=== PATIENT | male | born 1955 | race Caucasian/White ===

== ENCOUNTER 2017-01-27 06:44 | Day surgery (SDC) | payer MEDICAID ==
[2017-01-23 12:23] LABS: Urine Bilirubin Negative (Negative); Urine Blood Negative /uL (Negative); Urine Color Yellow (Yellow); Urine Glucose Normal (Normal); Urine Ketone Negative (Negative); Urine Nitrite Negative (Negative); Urine RBC <1 /hpf (0 - 3)
[2017-01-23 12:31] LABS: INR 1.01 (0.9-1.15); Partial Thromboplastin Time 28.4 sec (22.64-33.71); Prothrombin Time 10.4 sec (9.37-12.3)
[2017-01-23 12:34] LABS: Basophils # (auto) 0 uL; Basophils % (auto) 0.6 % (0.0-2.0); Eosinophils # (auto) 0.2 uL; Eosinophils % (auto) 4.9 % (0.0-7.0); Hematocrit 39.3 % (41.0-53.0); Hemoglobin 13.4 g/dL (13.5-17.5); Lymphocytes # (auto) 1.3 uL; Mean Corpuscular Hgb Conc. 34.1 g/dL (32.0-36.0); Mean Corpuscular Volume 82.2 fL (80.0-100.0); Mean Platelet Volume 8.1 fL (7.4-10.4); Monocytes # (auto) 0.5 uL; Monocytes % (auto) 9.8 % (0.0-12.0); Neutrophils # (auto) 2.7 uL; Neutrophils % (auto) 56.7 % (37.0-80.0); Platelet Count (auto) 263 10^3/uL (140-450); Red Cell Distribution Width 13.4 % (11.6-16.0); White Blood Cell 4.7 10^3/uL (4.4-10.8)
[2017-01-23 12:43] LABS: BUN/Creatinine Ratio 32.1; Bilirubin, Total 0.5 mg/dL (0.2-1.0); Potassium 3.9 mmol/L (3.5-5.1); Total Protein 7.1 g/dL (6.4-8.2)
[~2017-01-27] VITALS: Ht 172.7 cm; Wt 93.9 kg
[~2017-01-27 06:44] MED LIST: IBUP200C3 PO
[2017-01-27] MEDS ORDERED: ceFAZolin 1GM/50ML D5W 50 ML IV ONE (07:22)
[2017-01-27] MEDS ORDERED: BUPIVACAINE 0.25% INJ 50ML VIAL ONE (10:32)
[2017-01-27] MEDS ORDERED: PROMETHAZINE HCL 25 MG/ML 1ML IM ONE (12:15)
[2017-01-27] MEDS ORDERED: PROPOFOL 10 MG/ML 20 ML IV ONE (12:17)
[2017-01-27] MEDS ORDERED: fentaNYL CITRATE 100 MCG/2 ML VL ONE (12:17)
[2017-01-27] MEDS ORDERED: HYDROmorphone HCL 2 MG/ML VL ONE (12:17)
[2017-01-27] MEDS ORDERED: fentaNYL CITRATE 5 ML ONE (12:17)
[2017-01-27] MEDS ORDERED: SODIUM CHLORIDE LOCK 30 ML ONE (12:17)
[2017-01-27] MEDS ORDERED: NEOSTIGMINE 1 MG/ML INJ (10mg/10ML VIAL) ONE (12:17)
[2017-01-27] MEDS ORDERED: MIDAZOLAM HCL 1MG/1ML-2 ML VIAL ONE (12:17)
[2017-01-27] MEDS ORDERED: GLYCOPYRROLATE 0.2 MG/ML 1ML VIAL ONE (12:17)
[2017-01-27] MEDS ORDERED: METOCLOPRAMIDE HCL 5MG/ml INJ 2ml VIAL ONE (12:17)
[2017-01-27] MEDS ORDERED: ceFAZolin 1GM VL ONE (12:35)
[2017-01-27] MEDS: HYDROmorphone HCL 2 MG/ML VL IV PRN ×2 (14:25→14:35)
[2017-01-27 15:14] VITALS: BP 124/68
== END 2017-01-27 15:34 | disposition home or self-care (01) ==
LOC: SUR 06:44
PROVIDERS: ATTEND Surgery
DX: K40.91 Unilateral inguinal hernia, without obstruction or gangrene, recurrent (principal); K66.0 Peritoneal adhesions (postprocedural) (postinfection); Z87.891 Personal history of nicotine dependence
CPT/HCPCS: 49651; J1170; J2765; J3010; J7030; S2900; 36415; 80053; 81001; 85025; 85610; 85730; 86850; 86900; 86901; C1781; J0690; J2250; J2704; J3490

== ENCOUNTER 2021-07-16 10:30 | Emergency (ER) | payer OTHER, MEDICAID ==
[~2021-07-16] VITALS: Ht 172.7 cm; Wt 102.1 kg
[2021-07-16 10:31] VITALS: BP 146/77
[2021-07-16 11:36] LABS: Basophils # (auto) 0 10 ^3/uL (0-0.2); Basophils % (auto) 0.8 % (0.0-2.0); Eosinophils # (auto) 0.5 10 ^3/uL (0-0.8); Eosinophils % (auto) 10.6 % (0.0-7.0); Hematocrit 40.3 % (41.0-53.0); Hemoglobin 13.6 g/dL (13.5-17.5); Lymphocytes # (auto) 1.3 10 ^3/uL (0.4-5.4); Lymphocytes % (auto) 24.9 % (10.0-50.0); Mean Corpuscular Hemoglobin 27.8 pg (28.0-32.0); Mean Corpuscular Hgb Conc. 33.8 g/dL (32.0-36.0); Monocytes # (auto) 0.5 10 ^3/uL (0-1.3); Neutrophils # (auto) 2.7 10 ^3/uL (1.6-8.6); Neutrophils % (auto) 53.7 % (37.0-80.0); Nucleated Red Blood Cells % 0.1 %; Red Blood Cells 4.92 10^6/uL (4.5-5.90); Red Cell Distribution Width 14.7 % (11.8-14.3); White Blood Cell 5.1 10^3/uL (4.4-10.8)
[2021-07-16 11:57] LABS: Chloride 110 mmol/L (98-107); Potassium 3.8 mmol/L (3.5-5.1); Sodium 139 mmol/L (136-145)
[2021-07-16 12:13] LABS: Alanine Aminotransferase 38 U/L (16-61); Albumin 3.9 g/dL (3.4-5.0); Alkaline Phosphatase 65 U/L (45-117); Anion Gap 8 (5-15); Aspartate Aminotransferase 27 U/L (15-37); BUN/Creatinine Ratio 19.5; Bilirubin, Total 0.7 mg/dL (0.2-1.0); Blood Urea Nitrogen 41 mg/dL (7-18); Calcium 8.8 mg/dL (8.5-10.1); Carbon Dioxide 21 mmol/L (21-32); GFR African American 41 mL/min; GFR Non-African American 34 mL/min; Glucose 102 mg/dL (74-106); Total Protein 7.2 g/dL (6.4-8.2)
== END 2021-07-16 19:00 | disposition left against medical advice (07) ==
LOC: ER 10:30
DX: R55 Syncope and collapse (principal); R42 Dizziness and giddiness; I10 Essential (primary) hypertension; K21.9 Gastro-esophageal reflux disease without esophagitis; Z88.6 Allergy status to analgesic agent; Z79.899 Other long term (current) drug therapy; Z87.442 Personal history of urinary calculi
CPT/HCPCS: 36415; 70450; 71045; 80053; 83880; 84484; 85025; 93005

== ENCOUNTER 2023-03-18 09:12 | Inpatient (IN) | payer OTHER, MEDICAID ==
[~2023-03-18] VITALS: Ht 172.7 cm; Wt 98.7 kg
[~2023-03-18 09:12] MED LIST changes: +AMLO-483 PO; +ASCO500T11 PO; +ASPI-378 OR; +BACL20TA PO; +CETI10TA2 PO; +CHOL20004 PO; +CYAN1TAB14 PO; +FLUT110A IN; -IBUP200C3 PO; +IBUP600T28 PO; +LISI20TA28 PO; +MULT-1018 OR; +OMEP20TA PO; +TAMS0.4C36 PO; +TRAM50TA2 PO; +VALA500T33 PO; +ZINC100T5 PO; +ZINC50TA7 PO
[2023-03-18] MEDS ORDERED: ceFAZolin 1GM/50ML 100 ML IV ONE (09:36)
[2023-03-18] MEDS ORDERED: HYDROmorphone HCL 2 MG/ML VL/or syr ONE (12:02)
[2023-03-18] MEDS ORDERED: MIDAZOLAM HCL 2MG/2ML 2ml VIAL (1mg/ml) ONE (12:03)
[2023-03-18] MEDS ORDERED: fentaNYL CITRATE 100 MCG/2 ML VL ONE ×2 (12:03→15:20)
[2023-03-18] MEDS ORDERED: DexAMETHasone SOD PHOS 10MG/1ML VIAL INJ ONE (13:42)
[2023-03-18] MEDS ORDERED: fentaNYL CITRATE 5 ML ONE (13:58)
[2023-03-18] MEDS ORDERED: SUGAMMADEX 200mg/2ml Vial (100MG/ML) IV ONE (15:05)
[2023-03-18] MEDS ORDERED: ePHEDrine SULFATE 50 MG/ML AMP ONE (17:18)
[2023-03-18] MEDS ORDERED: ACETAMINOPHEN 325 MG TAB PO PRN (17:30)
[2023-03-18] MEDS ORDERED: ONDANSETRON HCL 4 MG/2 ML VIAL IV PRN ×2 (17:30→18:15)
[2023-03-18] MEDS: ceFAZolin 1GM/50ML 50 ML IV SCH (17:30)
[2023-03-18] MEDS ORDERED: NITROGLYCERIN 0.4 MG SL TAB SL PRN ×2 (17:30→20:30)
[2023-03-18] MEDS ORDERED: HYDROcodone-ACET 5/325MG TAB PO PRN (17:30)
[2023-03-18] MEDS ORDERED: MORPHINE SULFATE INJ 2 MG/ml SYRG IV PRN ×2 (17:30→20:30)
[2023-03-18] MEDS ORDERED: HYDROcodone-ACET 10/325MG TAB PO PRN (17:30)
[2023-03-18] MEDS ORDERED: MORPHINE SULFATE INJ 2 MG/ml SYRG IV ONE (18:05)
[2023-03-18] MEDS ORDERED: HYDROcodone-ACET 10/325MG TAB PO ONE (18:05)
[2023-03-18] MEDS ORDERED: HYDROmorphone HCL 2 MG/ML VL/or syr IV PRN ×2 (18:15)
[2023-03-18 19:58] VITALS: BP 127/74
[2023-03-18] MEDS: MORPHINE SULFATE 4 MG/ML SYR/VIAL IV PRN (20:39)
[2023-03-18] MEDS: D5W/SOD CHLO 0.9% 1,000 ML IV SCH (20:49)
[2023-03-18] MEDS: CYCLOBENZAPRINE HCL 10 MG TAB PO SCH (21:55)
[2023-03-18] MEDS: DOCUSATE SOD 100 MG CAP PO SCH (21:55)
[2023-03-19] MEDS: ceFAZolin 1GM/50ML 50 ML IV SCH (01:38)
[2023-03-19] MEDS: D5W/SOD CHLO 0.9% 1,000 ML IV SCH ×2 (03:30→13:52)
[2023-03-19 05:00] VITALS: BP 95/57
[2023-03-19] MEDS: CYCLOBENZAPRINE HCL 10 MG TAB PO SCH ×3 (05:59→22:00)
[2023-03-19 09:00] VITALS: BP 100/70
[2023-03-19] MEDS: DOCUSATE SOD 100 MG CAP PO SCH ×2 (09:30→22:00)
[2023-03-19 13:00] VITALS: BP 119/80
[2023-03-19 17:10] VITALS: BP 154/79
[2023-03-19 22:00] VITALS: BP 131/84
[2023-03-20] MEDS: MORPHINE SULFATE 4 MG/ML SYR/VIAL IV PRN (01:38)
[2023-03-20] MEDS: D5W/SOD CHLO 0.9% 1,000 ML IV SCH ×2 (02:17→09:30)
[2023-03-20 05:00] VITALS: BP 137/85
[2023-03-20] MEDS: CYCLOBENZAPRINE HCL 10 MG TAB PO SCH ×2 (06:21→13:22)
[2023-03-20 09:00] VITALS: BP 117/81
[2023-03-20] MEDS: DOCUSATE SOD 100 MG CAP PO SCH (10:00)
[2023-03-20 12:45] VITALS: BP 158/83
[2023-03-20] MEDS ORDERED: MORPHINE SULFATE INJ 2 MG/ml SYRG IV PRN (13:15)
[2023-03-20 16:37] VITALS: BP 154/79
[2023-03-20 17:01] VITALS: BP 113/64
== END 2023-03-20 17:15 | disposition home or self-care (01) | DRG 457 ==
LOC: SUR 09:12 → TELE 17:19 → TELE-WESTW 19:35
PROVIDERS: ADMIT Orthopaedic Surgery; ATTEND Orthopaedic Surgery
PROC: 0QP004Z Removal of Internal Fixation Device from Lumbar Vertebra, Open Approach (ICD-10-PCS; principal; 2023-03-20)
PROC: 00NY0ZZ Release Lumbar Spinal Cord, Open Approach (ICD-10-PCS; 2023-03-20)
PROC: 01NB0ZZ Release Lumbar Nerve, Open Approach (ICD-10-PCS; 2023-03-20)
PROC: 0SG00AJ Fusion of Lumbar Vertebral Joint with Interbody Fusion Device, Posterior Approach, Anterior Column, Open Approach (ICD-10-PCS; 2023-03-20)
PROC: 4A11X4G Monitoring of Peripheral Nervous Electrical Activity, Intraoperative, External Approach (ICD-10-PCS; 2023-03-20)
DX: M96.1 Postlaminectomy syndrome, not elsewhere classified (principal); M96.0 Pseudarthrosis after fusion or arthrodesis; M41.56 Other secondary scoliosis, lumbar region; Y83.8 Other surgical procedures as the cause of abnormal reaction of the patient, or of later complication, without mention of misadventure at the time of the procedure; Y92.098 Other place in other non-institutional residence as the place of occurrence of the external cause; M48.00 Spinal stenosis, site unspecified; N40.0 Benign prostatic hyperplasia without lower urinary tract symptoms; J45.909 Unspecified asthma, uncomplicated; G89.29 Other chronic pain; I10 Essential (primary) hypertension; I25.10 Atherosclerotic heart disease of native coronary artery without angina pectoris; Z82.0 Family history of epilepsy and other diseases of the nervous system; Z82.49 Family history of ischemic heart disease and other diseases of the circulatory system
CPT/HCPCS: 72100; 76000; 86850; 86900; 86901; 97163; G0378; J0690; J1100; J2250; J2405

== ENCOUNTER 2023-03-28 19:00 | Inpatient (IN) | payer OTHER, MEDICAID ==
[~2023-03-28] VITALS: Ht 172.7 cm; Wt 88.4 kg
[~2023-03-28 19:00] MED LIST changes: -AMLO-483 PO; +AMLO1TAB21 PO; -IBUP600T28 PO; -LISI20TA28 PO; +LISI20TA56 PO; -MULT-1018 OR; -ZINC100T5 PO
[2023-03-28 20:23] LABS: Basophils # (auto) 0 10 ^3/uL (0-0.2); Basophils % (auto) 0.2 % (0.0-2.0); Eosinophils # (auto) 0 10 ^3/uL (0-0.8); Eosinophils % (auto) 0.5 % (0.0-7.0); Hematocrit 32.3 % (41.0-53.0); Hemoglobin 11.2 g/dL (13.5-17.5); Lymphocytes # (auto) 0.4 10 ^3/uL (0.4-5.4); Lymphocytes % (auto) 6.5 % (10.0-50.0); Mean Corpuscular Hemoglobin 28.7 pg (28.0-32.0); Mean Corpuscular Hgb Conc. 34.7 g/dL (32.0-36.0); Mean Corpuscular Volume 82.7 fL (80.0-100.0); Monocytes # (auto) 0.2 10 ^3/uL (0-1.3); Monocytes % (auto) 3.6 % (0.0-12.0); Neutrophils # (auto) 5.7 10 ^3/uL (1.6-8.6); Neutrophils % (auto) 89.2 % (37.0-80.0); Nucleated Red Blood Cells % 0.1 %; Red Cell Distribution Width 13.2 % (11.8-14.3); White Blood Cell 6.4 10^3/uL (4.4-10.8)
[2023-03-28 20:41] LABS: Albumin 2.8 g/dL (3.4-5.0); BUN/Creatinine Ratio 29.5 (10.0-20.0); Calcium 8.9 mg/dL (8.5-10.1); Potassium 3.9 mmol/L (3.5-5.1)
[2023-03-28 20:44] LABS: Bilirubin, Total 0.8 mg/dL (0.2-1.0); Total Protein 6.6 g/dL (6.4-8.2)
[2023-03-28] MEDS ORDERED: VANCOMYCIN PER PHARMACY 0 MG IV SCH (20:45)
[2023-03-28] MEDS ORDERED: CEFEPIME 1GM/ 50ML 50 ML IV ONE (20:45)
[2023-03-28] MEDS ORDERED: ACETAMINOPHEN 325 MG TAB PO ONE (21:00)
[2023-03-28] MEDS ORDERED: VANCOMYCIN 1GM/250ML 250 ML IV ONE (21:00)
[2023-03-28] MEDS ORDERED: SENNA 8.6 MG TAB PO PRN (22:00)
[2023-03-28] MEDS ORDERED: SENNA 8.6 MG TAB PO ONE (22:00)
[2023-03-28] MEDS ORDERED: ONDANSETRON HCL 4 MG/2 ML VIAL IV PRN (22:00)
[2023-03-28] MEDS ORDERED: hydrALAZINE HCL 20 MG/ML VL IV PRN (22:00)
[2023-03-28] MEDS ORDERED: DOCUSATE SOD 100 MG CAP PO PRN (22:00)
[2023-03-28] MEDS: SODIUM CHLORIDE 0.9% 1,000 ML IV SCH (22:49)
[2023-03-29] MEDS ORDERED: NITROGLYCERIN 0.4 MG SL TAB SL PRN
[2023-03-29] MEDS ORDERED: MORPHINE SULFATE INJ 2 MG/ml SYRG IV PRN
[2023-03-29 03:01] LABS: Urine Bacteria NONE SEEN /hpf (None Seen); Urine Blood Negative /uL (Negative); Urine Mucus FEW (None Seen); Urine Specific Gravity 1.015 (1.001-1.035); Urine WBC <1 /hpf (0 - 3)
[2023-03-29 06:09] LABS: Albumin 2.8 g/dL (3.4-5.0); Calcium 8.3 mg/dL (8.5-10.1); Potassium 4.1 mmol/L (3.5-5.1)
[2023-03-29 06:14] LABS: BUN/Creatinine Ratio 26.4 (10.0-20.0); Bilirubin, Total 0.6 mg/dL (0.2-1.0)
[2023-03-29 06:26] LABS: Basophils # (auto) 0 10 ^3/uL (0-0.2); Basophils % (auto) 0.5 % (0.0-2.0); Eosinophils # (auto) 0.1 10 ^3/uL (0-0.8); Eosinophils % (auto) 1.3 % (0.0-7.0); Hemoglobin 11.1 g/dL (13.5-17.5); Lymphocytes # (auto) 0.8 10 ^3/uL (0.4-5.4); Lymphocytes % (auto) 12.7 % (10.0-50.0); Mean Corpuscular Hemoglobin 29.2 pg (28.0-32.0); Mean Corpuscular Hgb Conc. 35.7 g/dL (32.0-36.0); Mean Corpuscular Volume 81.8 fL (80.0-100.0); Monocytes # (auto) 0.4 10 ^3/uL (0-1.3); Monocytes % (auto) 6.5 % (0.0-12.0); Neutrophils # (auto) 5.3 10 ^3/uL (1.6-8.6); Nucleated Red Blood Cells % 0.1 %; Red Blood Cells 3.79 10^6/uL (4.5-5.90); Red Cell Distribution Width 13.1 % (11.8-14.3); White Blood Cell 6.7 10^3/uL (4.4-10.8)
[2023-03-29] MEDS: HYDROcodone-ACET 5/325MG TAB PO PRN ×2 (06:29→16:27)
[2023-03-29] MEDS ORDERED: VANCOMYCIN 750mg/250ml 250 ML IV SCH (09:00)
[2023-03-29] MEDS ORDERED: AZITHROMYCIN 500MG/ 250ML 250 ML IV SCH (10:00)
[2023-03-29] MEDS: FAMOTIDINE (10MG/ML) 2ML VL IV SCH (11:06)
[2023-03-29] MEDS: MORPHINE SULFATE INJ 2 MG/ml SYRG IV PRN ×2 (11:07→15:31)
[2023-03-29] MEDS ORDERED: POLYETHYLENE GLYCOL 17 GM PWDR PO ONE (11:45)
[2023-03-29] MEDS ORDERED: FLEET ENEMA(ADULT) 135 ML PR ONE (11:45)
[2023-03-29] MEDS ORDERED: MILK OF MAGNESIA 30ML SUSP PO ONE (12:15)
[2023-03-29] MEDS ORDERED: GASTROGRAFIN 30 ML SOL ONE (12:24)
[2023-03-29 13:00] VITALS: BP 118/79
[2023-03-29] MEDS ORDERED: GOLYTELY 4L KIT PO ONE (13:15)
[2023-03-29] MEDS: SODIUM CHLORIDE 0.9% 1,000 ML IV SCH (14:40)
[2023-03-29] MEDS: metroNIDAZOLE 500MG/100ML 100 ML IV SCH ×2 (15:30→21:58)
[2023-03-29 17:00] VITALS: BP 119/71
[2023-03-29 22:00] VITALS: BP 124/72
[2023-03-29] MEDS: ACETAMINOPHEN 325 MG TAB PO PRN (22:47)
[2023-03-30 05:00] VITALS: BP 101/62
[2023-03-30 05:45] LABS: Calcium 8.1 mg/dL (8.5-10.1); Potassium 3.8 mmol/L (3.5-5.1)
[2023-03-30 05:47] LABS: BUN/Creatinine Ratio 26.8 (10.0-20.0)
[2023-03-30] MEDS: metroNIDAZOLE 500MG/100ML 100 ML IV SCH (06:14)
[2023-03-30] MEDS: ACETAMINOPHEN 325 MG TAB PO PRN (06:17)
[2023-03-30] MEDS: SODIUM CHLORIDE 0.9% 1,000 ML IV SCH (07:20)
[2023-03-30] MEDS: FAMOTIDINE (10MG/ML) 2ML VL IV SCH (08:12)
[2023-03-30] MEDS ORDERED: MINERAL OIL 30 ML GT ONE (08:15)
[2023-03-30] MEDS ORDERED: FLEET ENEMA(ADULT) 135 ML PR ONE (08:15)
[2023-03-30 09:00] VITALS: BP 111/67
[2023-03-30] MEDS ORDERED: ASCORBIC ACID 500 MG TAB PO SCH (10:00)
[2023-03-30] MEDS ORDERED: amLODIPine BESYLATE 5 MG TAB PO SCH (10:00)
[2023-03-30] MEDS ORDERED: ASPirin 81 mg TAB PO SCH (10:00)
[2023-03-30] MEDS ORDERED: LISINOPRIL 20 MG TAB PO SCH (10:00)
[2023-03-30] MEDS ORDERED: LACTULOSE 20Gm/30ML SOLN PO SCH (10:00)
[2023-03-30] MEDS ORDERED: levoFLOXacin 500MG 100 ML IV SCH (10:00)
[2023-03-30] MEDS ORDERED: POLYETHYLENE GLYCOL 17 GM PWDR PO SCH (10:00)
[2023-03-30] MEDS ORDERED: TAMSULOSIN HYDROCHLORIDE 0.4 MG CAP PO SCH (10:00)
[2023-03-30] MEDS ORDERED: MINERAL OIL 30 ML PO ONE (10:00)
[2023-03-30] MEDS ORDERED: DOCU-94 PO (11:07)
[2023-03-30] MEDS ORDERED: METR-344 PO (11:36)
[2023-03-30] MEDS ORDERED: LEVO500T31 PO (11:36)
[2023-03-30 12:32] VITALS: BP 111/64
== END 2023-03-30 13:00 | disposition home or self-care (01) | DRG 391 ==
LOC: EDBD 19:00 → ER 19:00 → OVERFLOW 23:50 → EAST 03-29 10:30
PROVIDERS: ADMIT Nurse Practitioner Family; ATTEND Internal Medicine
DX: K59.03 Drug induced constipation (principal); J15.6 Pneumonia due to other Gram-negative bacteria; K50.00 Crohn's disease of small intestine without complications; E86.0 Dehydration; E87.6 Hypokalemia; E88.09 Other disorders of plasma-protein metabolism, not elsewhere classified; T40.605A Adverse effect of unspecified narcotics, initial encounter; J45.909 Unspecified asthma, uncomplicated; N40.0 Benign prostatic hyperplasia without lower urinary tract symptoms; M54.50 Low back pain, unspecified; G89.18 Other acute postprocedural pain; I10 Essential (primary) hypertension; K21.9 Gastro-esophageal reflux disease without esophagitis; M96.1 Postlaminectomy syndrome, not elsewhere classified; Y92.89 Other specified places as the place of occurrence of the external cause; Z82.0 Family history of epilepsy and other diseases of the nervous system; Z82.49 Family history of ischemic heart disease and other diseases of the circulatory system; Z87.442 Personal history of urinary calculi; Z98.1 Arthrodesis status; Z88.8 Allergy status to other drugs, medicaments and biological substances
CPT/HCPCS: 36415; 71045; 72131; 74176; 80048; 80053; 81001; 82150; 83605; 83690; 84484; 85025; 87040; 87081; 96365; 96366; 96367; G0378; J1956; J2405; J3490